=== PATIENT | male | born 1995 | race Caucasian/White ===

== ENCOUNTER 2021-06-19 18:16 | Emergency (ER) | payer SELFPAY ==
[2021-06-19] MEDS ORDERED: Ketorolac 15 MG/ML SDV IM ONE (19:12)
== END 2021-06-19 20:21 | disposition home or self-care (01) ==
LOC: JD.ED 18:16
DX: S52.022A Displaced fracture of olecranon process without intraarticular extension of left ulna, initial encounter for closed fracture (principal); Z88.0 Allergy status to penicillin; W18.39XA Other fall on same level, initial encounter
CPT/HCPCS: 73080; 96372; 99283; J1885